=== PATIENT | male | born 1970 | race Caucasian/White ===

== ENCOUNTER 2021-08-26 17:30 | Inpatient (IN) ==
[2021-08-26] MEDS ORDERED: Ipratropium/Albuterol Neb 3 ML IH PRN (18:47)
[2021-08-26] MEDS ORDERED: Tobramycin for INHALATION 300 MG/5 ML AMPUL IH SCH (21:00)
[2021-08-26] MEDS ORDERED: NON-FORMULARY MEDICATION 1 EACH EACH (Clonazepam [Clonazepam] 0.5 MG Tablet) PO SCH (21:00)
[2021-08-26] MEDS ORDERED: TOBRAMYCIN IH SCH (21:00)
[2021-08-27] MEDS: *HR* OxyCODONE Immed Rel 5 MG TABLET PO PRN ×2 (05:01→12:32)
[2021-08-27] MEDS: clonazePAM 0.5 MG TABLET PO PRN (05:07)
[2021-08-27] MEDS ORDERED: Tobramycin for INHALATION 300 MG/5 ML AMPUL IH SCH (06:00)
[2021-08-27] MEDS: Apixaban 5 MG TABLET PO SCH (08:13)
[2021-08-27] MEDS: Tobramycin for INHALATION 300 MG/5 ML AMPUL IH SCH ×2 (09:42→20:15)
[2021-08-27 11:27] LABS: Hematocrit 36.4 % (37.5-50.1); Mean Corpuscular Hemoglobin 29.3 pg (28.0-33.3); Mean Corpuscular Volume 88.8 fL (83.0-100.0); Mean Platelet Volume 9.3 fL (9.4-12.4); Platelet Count 232 K/mcL (140-400); Red Cell Distribution Width 17.5 % (11.5-14.5); White Blood Count 4.7 K/mcL (4.3-11.1)
[2021-08-27 14:48] LABS: Alanine Aminotransferase 43 Units/L (7-52); Albumin 3.7 g/dL (3.5-5.7); Albumin/Globulin Ratio 1.3 (1.1-2.2); Alkaline Phosphatase 137 Units/L (34-104); Aspartate Amino Transferase 15 Units/L (13-39); BUN/Creatinine Ratio 26 (6-26); Bilirubin,Total 0.9 mg/dL (0.3-1.0); Blood Urea Nitrogen 14 mg/dL (6-20); Calcium 10.8 mg/dL (8.6-10.3); Carbon Dioxide 25 mEq/L (23-29); Chloride 100 mEq/L (98-107); Globulin 2.9 g/dL (2.4-3.5); Glucose 103 mg/dL (70-105); Magnesium 1.8 mg/dL (1.6-2.6); Osmolality,Calculated 279 (280-300); Potassium 3.6 mEq/L (3.5-5.1); Sodium 134 mEq/L (136-145); Total Protein 6.6 g/dL (6.4-8.9); eGFR For African Americans > 60 (> 60); eGFR For Non-African Americans > 60 (> 60)
[2021-08-27] MEDS: Acetaminophen 325 MG TABLET PO PRN (22:01)
[2021-08-27] MEDS: QUEtiapine Fumarate 25 MG TABLET PO PRN (22:01)
[2021-08-28] MEDS: clonazePAM 0.5 MG TABLET PO PRN (04:30)
[2021-08-28] MEDS: *HR* OxyCODONE Immed Rel 5 MG TABLET PO PRN ×3 (04:30→22:43)
[2021-08-28] MEDS: Apixaban 5 MG TABLET PO SCH (08:05)
[2021-08-28] MEDS: Tobramycin for INHALATION 300 MG/5 ML AMPUL IH SCH ×2 (10:25→20:16)
[2021-08-28] MEDS: QUEtiapine Fumarate 25 MG TABLET PO PRN (22:43)
[2021-08-29] MEDS: Apixaban 5 MG TABLET PO SCH (08:46)
[2021-08-29] MEDS: Tobramycin for INHALATION 300 MG/5 ML AMPUL IH SCH ×2 (09:41→21:57)
[2021-08-29] MEDS: clonazePAM 0.5 MG TABLET PO PRN (22:10)
[2021-08-29] MEDS: Acetaminophen 325 MG TABLET PO PRN (22:11)
[2021-08-30 05:24] LABS: Hemoglobin 12.3 g/dL (12.9-16.9); Mean Corpuscular HGB Conc 32.4 g/dL (31.6-35.5); Mean Corpuscular Hemoglobin 29.6 pg (28.0-33.3); Mean Corpuscular Volume 91.3 fL (83.0-100.0); Mean Platelet Volume 9.8 fL (9.4-12.4); Platelet Count 233 K/mcL (140-400); Red Blood Count 4.16 M/mcL (4.19-5.50); Red Cell Distribution Width 17.6 % (11.5-14.5); White Blood Count 5.6 K/mcL (4.3-11.1)
[2021-08-30 05:39] LABS: Alanine Aminotransferase 36 Units/L (7-52); Albumin 3.7 g/dL (3.5-5.7); Albumin/Globulin Ratio 1.4 (1.1-2.2); Alkaline Phosphatase 138 Units/L (34-104); Aspartate Amino Transferase 12 Units/L (13-39); BUN/Creatinine Ratio 33 (6-26); Bilirubin,Total 0.8 mg/dL (0.3-1.0); Blood Urea Nitrogen 16 mg/dL (6-20); Calcium 10.7 mg/dL (8.6-10.3); Carbon Dioxide 30 mEq/L (23-29); Chloride 101 mEq/L (98-107); Globulin 2.7 g/dL (2.4-3.5); Glucose 100 mg/dL (70-105); Magnesium 1.8 mg/dL (1.6-2.6); Osmolality,Calculated 285 (280-300); Potassium 3.9 mEq/L (3.5-5.1); Sodium 137 mEq/L (136-145); Total Protein 6.4 g/dL (6.4-8.9); eGFR For African Americans > 60 (> 60); eGFR For Non-African Americans > 60 (> 60)
[2021-08-30] MEDS: Apixaban 5 MG TABLET PO SCH (08:37)
[2021-08-30] MEDS: Tobramycin for INHALATION 300 MG/5 ML AMPUL IH SCH ×2 (08:57→19:58)
[2021-08-31] MEDS: Apixaban 5 MG TABLET PO SCH (08:49)
[2021-08-31] MEDS: Tobramycin for INHALATION 300 MG/5 ML AMPUL IH SCH ×2 (09:06→20:06)
[2021-08-31] MEDS: QUEtiapine Fumarate 25 MG TABLET PO PRN (22:01)
[2021-09-01] MEDS: Apixaban 5 MG TABLET PO SCH (08:45)
[2021-09-01] MEDS: Tobramycin for INHALATION 300 MG/5 ML AMPUL IH SCH ×2 (09:58→20:13)
[2021-09-01] MEDS: Acetaminophen 325 MG TABLET PO PRN (20:21)
[2021-09-01] MEDS: QUEtiapine Fumarate 25 MG TABLET PO PRN (20:21)
[2021-09-02] MEDS: Apixaban 5 MG TABLET PO SCH (08:54)
[2021-09-02] MEDS: Tobramycin for INHALATION 300 MG/5 ML AMPUL IH SCH ×2 (10:32→20:02)
[2021-09-02] MEDS: Acetaminophen 325 MG TABLET PO PRN (19:53)
[2021-09-02] MEDS: QUEtiapine Fumarate 25 MG TABLET PO PRN (19:54)
[2021-09-03] MEDS: *HR* OxyCODONE Immed Rel 5 MG TABLET PO PRN (00:02)
[2021-09-03] MEDS: clonazePAM 0.5 MG TABLET PO PRN (00:02)
[2021-09-03] MEDS: Apixaban 5 MG TABLET PO SCH (08:14)
[2021-09-03] MEDS: Acetaminophen 325 MG TABLET PO PRN (08:17)
[2021-09-03] MEDS: Tobramycin for INHALATION 300 MG/5 ML AMPUL IH SCH ×2 (10:14→20:49)
[2021-09-04] MEDS: clonazePAM 0.5 MG TABLET PO PRN (00:10)
[2021-09-04] MEDS: Apixaban 5 MG TABLET PO SCH (07:44)
[2021-09-04] MEDS: Acetaminophen 325 MG TABLET PO PRN (07:44)
[2021-09-04] MEDS: Tobramycin for INHALATION 300 MG/5 ML AMPUL IH SCH ×2 (09:01→20:42)
[2021-09-04] MEDS: QUEtiapine Fumarate 25 MG TABLET PO PRN (21:04)
[2021-09-05 08:08] LABS: Basophils % 0.8 %; Hematocrit 32.6 % (37.5-50.1); Hemoglobin 10.7 g/dL (12.9-16.9); Immature Granulocytes % 1.5 % (0-4); Lymphocytes # 1.3 K/mcL (0.6-4.6); Lymphocytes % 31.5 %; Mean Corpuscular HGB Conc 32.8 g/dL (31.6-35.5); Mean Corpuscular Hemoglobin 30.2 pg (28.0-33.3); Mean Corpuscular Volume 92.1 fL (83.0-100.0); Monocytes # 0.3 K/mcL (0.0-1.3); Monocytes % 8.6 %; Neutrophils # 2.3 K/mcL (1.6-8.9); Platelet Count 217 K/mcL (140-400); Red Blood Count 3.54 M/mcL (4.19-5.50); Red Cell Distribution Width 17.6 % (11.5-14.5); Segmented Neutrophils % 56.6 %
[2021-09-05 08:26] LABS: BUN/Creatinine Ratio 26 (6-26); Blood Urea Nitrogen 11 mg/dL (6-20); Carbon Dioxide 28 mEq/L (23-29); Chloride 102 mEq/L (98-107); Potassium 3.7 mEq/L (3.5-5.1); Sodium 137 mEq/L (136-145); eGFR For African Americans > 60 (> 60); eGFR For Non-African Americans > 60 (> 60)
[2021-09-05 08:31] LABS: Glucose 91 mg/dL (70-105); Osmolality,Calculated 283 (280-300)
[2021-09-05] MEDS: Tobramycin for INHALATION 300 MG/5 ML AMPUL IH SCH ×2 (09:00→20:37)
[2021-09-05] MEDS: Apixaban 5 MG TABLET PO SCH (09:32)
[2021-09-05] MEDS: Acetaminophen 325 MG TABLET PO PRN ×2 (09:32→20:24)
[2021-09-05] MEDS: QUEtiapine Fumarate 25 MG TABLET PO PRN (20:24)
[2021-09-06] MEDS: Acetaminophen 325 MG TABLET PO PRN ×2 (09:01→20:00)
[2021-09-06] MEDS: Apixaban 5 MG TABLET PO SCH (09:02)
[2021-09-06] MEDS: Tobramycin for INHALATION 300 MG/5 ML AMPUL IH SCH ×2 (09:13→20:14)
[2021-09-06] MEDS ORDERED: FLU Vac QV 21-22 (6Month+)/PF 0.5 ML SYRINGE IM ONE (10:30)
[2021-09-06] MEDS: QUEtiapine Fumarate 25 MG TABLET PO PRN (20:00)
[2021-09-06] MEDS: clonazePAM 0.5 MG TABLET PO PRN (23:28)
[2021-09-06] MEDS: *HR* OxyCODONE Immed Rel 5 MG TABLET PO PRN (23:28)
[2021-09-07 04:46] LABS: Basophils % 0.4 %; Eosinophils % 0.9 %; Hematocrit 33.4 % (37.5-50.1); Hemoglobin 10.7 g/dL (12.9-16.9); Immature Granulocytes % 1.3 % (0-4); Lymphocytes # 1.5 K/mcL (0.6-4.6); Lymphocytes % 34.5 %; Mean Corpuscular Hemoglobin 29.8 pg (28.0-33.3); Mean Platelet Volume 9.3 fL (9.4-12.4); Monocytes # 0.5 K/mcL (0.0-1.3); Monocytes % 11.2 %; Neutrophils # 2.3 K/mcL (1.6-8.9); Platelet Count 229 K/mcL (140-400); Red Blood Count 3.59 M/mcL (4.19-5.50); Red Cell Distribution Width 17.8 % (11.5-14.5); Segmented Neutrophils % 51.7 %; White Blood Count 4.5 K/mcL (4.3-11.1)
[2021-09-07 05:01] LABS: Alanine Aminotransferase 34 Units/L (7-52); Albumin 3.4 g/dL (3.5-5.7); Albumin/Globulin Ratio 1.5 (1.1-2.2); Alkaline Phosphatase 121 Units/L (34-104); Aspartate Amino Transferase 14 Units/L (13-39); BUN/Creatinine Ratio 30 (6-26); Bilirubin,Total 0.6 mg/dL (0.3-1.0); Blood Urea Nitrogen 13 mg/dL (6-20); Carbon Dioxide 29 mEq/L (23-29); Chloride 103 mEq/L (98-107); Globulin 2.2 g/dL (2.4-3.5); Glucose 97 mg/dL (70-105); Magnesium 1.9 mg/dL (1.6-2.6); Osmolality,Calculated 284 (280-300); Potassium 3.9 mEq/L (3.5-5.1); Sodium 137 mEq/L (136-145); Total Protein 5.6 g/dL (6.4-8.9); eGFR For African Americans > 60 (> 60); eGFR For Non-African Americans > 60 (> 60)
[2021-09-07] MEDS: Apixaban 5 MG TABLET PO SCH (08:12)
[2021-09-07] MEDS: Tobramycin for INHALATION 300 MG/5 ML AMPUL IH SCH ×2 (09:18→20:22)
[2021-09-07] MEDS: Acetaminophen 325 MG TABLET PO PRN ×2 (13:22→20:36)
[2021-09-07] MEDS: QUEtiapine Fumarate 25 MG TABLET PO PRN (20:37)
[2021-09-08] MEDS: Apixaban 5 MG TABLET PO SCH (09:12)
[2021-09-08] MEDS: Tobramycin for INHALATION 300 MG/5 ML AMPUL IH SCH ×2 (09:39→20:24)
[2021-09-08] MEDS: Loratadine 10 MG TABLET PO SCH (16:52)
[2021-09-08] MEDS: QUEtiapine Fumarate 25 MG TABLET PO PRN (20:08)
[2021-09-08] MEDS: Acetaminophen 325 MG TABLET PO PRN (20:08)
[2021-09-09] MEDS: Loratadine 10 MG TABLET PO SCH (08:34)
[2021-09-09] MEDS: Apixaban 5 MG TABLET PO SCH (08:34)
[2021-09-09] MEDS: Tobramycin for INHALATION 300 MG/5 ML AMPUL IH SCH ×2 (08:59→20:45)
[2021-09-09] MEDS ORDERED: Loratadine 10 MG TABLET PO SCH (09:00)
[2021-09-09] MEDS: QUEtiapine Fumarate 25 MG TABLET PO PRN (21:27)
[2021-09-10] MEDS: Tobramycin for INHALATION 300 MG/5 ML AMPUL IH SCH (09:03)
[2021-09-10] MEDS: Loratadine 10 MG TABLET PO SCH (09:47)
[2021-09-10] MEDS: Apixaban 5 MG TABLET PO SCH (09:47)
[2021-09-10] MEDS: QUEtiapine Fumarate 25 MG TABLET PO PRN (21:48)
[2021-09-10] MEDS ORDERED: Tobramycin for INHALATION 300 MG/5 ML AMPUL IH ONE (21:56)
[2021-09-11] MEDS: Apixaban 5 MG TABLET PO SCH (08:10)
[2021-09-11] MEDS: Loratadine 10 MG TABLET PO SCH (08:10)
[2021-09-11] MEDS ORDERED: Tobramycin for INHALATION 300 MG/5 ML AMPUL ONE (20:00)
[2021-09-11] MEDS: Tobramycin for INHALATION 300 MG/5 ML AMPUL IH SCH (20:51)
[2021-09-11] MEDS: Acetaminophen 325 MG TABLET PO PRN (21:05)
[2021-09-11] MEDS: QUEtiapine Fumarate 25 MG TABLET PO PRN (21:05)
[2021-09-12] MEDS: Apixaban 5 MG TABLET PO SCH (09:03)
[2021-09-12] MEDS: Loratadine 10 MG TABLET PO SCH (09:04)
[2021-09-12] MEDS: Tobramycin for INHALATION 300 MG/5 ML AMPUL IH SCH ×2 (09:06→20:29)
[2021-09-12] MEDS: Acetaminophen 325 MG TABLET PO PRN (21:15)
[2021-09-13] MEDS: Tobramycin for INHALATION 300 MG/5 ML AMPUL IH SCH ×3 (09:03→20:34)
[2021-09-13] MEDS: Apixaban 5 MG TABLET PO SCH (09:05)
[2021-09-13] MEDS: Loratadine 10 MG TABLET PO SCH (09:05)
[2021-09-13] MEDS: Acetaminophen 325 MG TABLET PO PRN (21:02)
[2021-09-13] MEDS: QUEtiapine Fumarate 25 MG TABLET PO PRN (21:03)
[2021-09-14] MEDS: Apixaban 5 MG TABLET PO SCH (08:03)
[2021-09-14] MEDS: Loratadine 10 MG TABLET PO SCH (08:03)
[2021-09-14] MEDS: Tobramycin for INHALATION 300 MG/5 ML AMPUL IH SCH ×2 (09:15→21:06)
[2021-09-14] MEDS: QUEtiapine Fumarate 25 MG TABLET PO PRN (20:09)
[2021-09-15] MEDS: Apixaban 5 MG TABLET PO SCH (07:58)
[2021-09-15] MEDS: Loratadine 10 MG TABLET PO SCH (07:58)
[2021-09-15] MEDS: Tobramycin for INHALATION 300 MG/5 ML AMPUL IH SCH ×2 (08:31→20:39)
[2021-09-15] MEDS: QUEtiapine Fumarate 25 MG TABLET PO PRN (20:36)
[2021-09-16] MEDS: Loratadine 10 MG TABLET PO SCH (09:01)
[2021-09-16] MEDS: Apixaban 5 MG TABLET PO SCH (09:02)
[2021-09-16] MEDS ORDERED: Tobramycin for INHALATION 300 MG/5 ML AMPUL ONE (09:24)
[2021-09-16] MEDS: Tobramycin for INHALATION 300 MG/5 ML AMPUL IH SCH ×2 (09:28→20:31)
[2021-09-16] MEDS: Acetaminophen 325 MG TABLET PO PRN (20:26)
[2021-09-16] MEDS: QUEtiapine Fumarate 25 MG TABLET PO PRN (20:26)
[2021-09-17] MEDS: Apixaban 5 MG TABLET PO SCH (07:49)
[2021-09-17] MEDS: Loratadine 10 MG TABLET PO SCH (07:50)
[2021-09-17] MEDS: Tobramycin for INHALATION 300 MG/5 ML AMPUL IH SCH ×2 (08:59→20:44)
[2021-09-18] MEDS: QUEtiapine Fumarate 25 MG TABLET PO PRN (03:08)
[2021-09-18] MEDS: Acetaminophen 325 MG TABLET PO PRN (03:12)
[2021-09-18] MEDS: Tobramycin for INHALATION 300 MG/5 ML AMPUL IH SCH ×2 (09:17→20:16)
[2021-09-18] MEDS: Apixaban 5 MG TABLET PO SCH (09:24)
[2021-09-18] MEDS: Loratadine 10 MG TABLET PO SCH (09:24)
[2021-09-19] MEDS: Apixaban 5 MG TABLET PO SCH (08:36)
[2021-09-19] MEDS: Loratadine 10 MG TABLET PO SCH (08:36)
[2021-09-19] MEDS: Tobramycin for INHALATION 300 MG/5 ML AMPUL IH SCH ×2 (09:27→20:28)
[2021-09-20] MEDS: Apixaban 5 MG TABLET PO SCH (08:12)
[2021-09-20] MEDS: Loratadine 10 MG TABLET PO SCH (08:13)
[2021-09-20] MEDS: Tobramycin for INHALATION 300 MG/5 ML AMPUL IH SCH ×2 (08:59→20:54)
[2021-09-20] MEDS: Gabapentin 100 MG CAPSULE PO SCH (20:09)
[2021-09-20] MEDS: QUEtiapine Fumarate 25 MG TABLET PO PRN (21:23)
[2021-09-21 04:59] LABS: Basophils % 0.7 %; Eosinophils % 0.4 %; Hematocrit 36.6 % (37.5-50.1); Hemoglobin 11.7 g/dL (12.9-16.9); Immature Granulocytes % 1.1 % (0-4); Lymphocytes # 1.7 K/mcL (0.6-4.6); Lymphocytes % 36.2 %; Mean Corpuscular Hemoglobin 29.9 pg (28.0-33.3); Mean Corpuscular Volume 93.6 fL (83.0-100.0); Mean Platelet Volume 9.9 fL (9.4-12.4); Monocytes # 0.5 K/mcL (0.0-1.3); Monocytes % 11.3 %; Neutrophils # 2.3 K/mcL (1.6-8.9); Platelet Count 212 K/mcL (140-400); Red Blood Count 3.91 M/mcL (4.19-5.50); Red Cell Distribution Width 16.6 % (11.5-14.5); Segmented Neutrophils % 50.3 %; White Blood Count 4.6 K/mcL (4.3-11.1)
[2021-09-21 05:19] LABS: Alanine Aminotransferase 26 Units/L (7-52); Albumin 3.6 g/dL (3.5-5.7); Albumin/Globulin Ratio 1.3 (1.1-2.2); Alkaline Phosphatase 111 Units/L (34-104); Aspartate Amino Transferase 11 Units/L (13-39); BUN/Creatinine Ratio 28 (6-26); Bilirubin,Total 0.7 mg/dL (0.3-1.0); Blood Urea Nitrogen 17 mg/dL (6-20); Calcium 10.7 mg/dL (8.6-10.3); Carbon Dioxide 30 mEq/L (23-29); Chloride 103 mEq/L (98-107); Globulin 2.8 g/dL (2.4-3.5); Glucose 95 mg/dL (70-105); Osmolality,Calculated 289 (280-300); Potassium 4.5 mEq/L (3.5-5.1); Sodium 139 mEq/L (136-145); Total Protein 6.4 g/dL (6.4-8.9); eGFR For African Americans > 60 (> 60); eGFR For Non-African Americans > 60 (> 60)
[2021-09-21] MEDS: Acetaminophen 325 MG TABLET PO PRN (08:09)
[2021-09-21] MEDS: Apixaban 5 MG TABLET PO SCH (08:10)
[2021-09-21] MEDS: Loratadine 10 MG TABLET PO SCH (08:10)
[2021-09-21] MEDS: Tobramycin for INHALATION 300 MG/5 ML AMPUL IH SCH ×2 (09:08→20:09)
[2021-09-21] MEDS: Gabapentin 100 MG CAPSULE PO SCH (20:23)
[2021-09-22] MEDS: Tobramycin for INHALATION 300 MG/5 ML AMPUL IH SCH ×2 (08:46→20:02)
[2021-09-22] MEDS ORDERED: Pneumococcal 23 Valent Vaccine 25 MCG/0.5 ML VIAL IM ONE (09:00)
[2021-09-22] MEDS: Apixaban 5 MG TABLET PO SCH (10:01)
[2021-09-22] MEDS: Loratadine 10 MG TABLET PO SCH (10:02)
[2021-09-22] MEDS: QUEtiapine Fumarate 25 MG TABLET PO PRN (20:59)
[2021-09-22] MEDS: Gabapentin 100 MG CAPSULE PO SCH (20:59)
[2021-09-22 22:25] VITALS: PULSE 95
[2021-09-23] MEDS: Loratadine 10 MG TABLET PO SCH (08:12)
[2021-09-23] MEDS: Apixaban 5 MG TABLET PO SCH (08:13)
[2021-09-23] MEDS: Tobramycin for INHALATION 300 MG/5 ML AMPUL IH SCH (09:06)
[2021-09-23 09:09] VITALS: RESP 19; O2SAT 99
[2021-09-23 09:38] VITALS: BP 119/83; TEMP 98.2
== END 2021-09-23 13:45 | disposition home or self-care (01) | DRG 177 ==
LOC: INPGRE 17:42
PROVIDERS: ADMIT Family Medicine; ATTEND Family Medicine